=== PATIENT | male | born 1945 | race Caucasian/White ===

== ENCOUNTER → 2019-12-25 08:58 | Outpatient (CLI) | payer MEDICARE, SELFPAY ==
[2019-12-26 14:05] LABS: Covid-19 Nasal PCR Sendout Lex Not Detected
== END ==
PROVIDERS: PCP Family Medicine; Visit Provider Family Medicine
DX: Z03.818 Encounter for observation for suspected exposure to other biological agents ruled out (principal)
CPT/HCPCS: U0004

== ENCOUNTER 2024-02-12 15:18 | Outpatient (CLI) | payer MEDICARE, SELFPAY ==
--- NOTE | 2024-02-12 15:44 | ECG_ITS ---
APPROVED REPORT Exam: Resting ECG HR:51 bpm ECG Measurements Heart Rate 51 AXES LA 152 P 31 QRSd 97 QRS 66 QT 460 T 46 QTc 435 Conclusion SINUS BRADYCARDIA BORDERLINE ECG UNCONFIRMED REPORT Electronically signed by : José Reza MD 02/21/2024 16:11:05
== END 2024-02-12 23:59 | disposition home or self-care (01) ==
LOC: PREOP 15:19
PROVIDERS: PCP Family Medicine; Visit Provider Surgery
DX: R00.1 Bradycardia, unspecified (principal); R94.31 Abnormal electrocardiogram [ECG] [EKG]
CPT/HCPCS: 93005